=== PATIENT | male | born 1975 | race Two or more races ===

== ENCOUNTER 2021-06-30 10:15 | Emergency (ER) | payer SELFPAY ==
[~2021-06-30] VITALS: Ht 172.7 cm; Wt 59.0 kg
[2021-06-30 11:10] VITALS: BP 124/80
[2021-06-30] MEDS ORDERED: ONDANSETRON ODT 4 MG TAB PO ONE (11:15)
[2021-06-30] MEDS ORDERED: HYDROcodone-ACET 10/325MG TAB PO ONE (11:15)
== END 2021-06-30 11:28 | disposition home or self-care (01) ==
LOC: ER 10:15
DX: B02.9 Zoster without complications (principal)
CPT/HCPCS: 99283; Q0162